=== PATIENT | female | born 1975 | race Caucasian/White ===

== ENCOUNTER 2017-10-01 18:59 | Emergency (ER) | payer OTHER, MEDICAID ==
[~2017-10-01] VITALS: Ht 167.6 cm; Wt 90.7 kg
[~2017-10-01 18:59] MED LIST: ACCUPRIL40 MG PO; ACETAMINOPHEN-1 EAC1 PO; AFRIN15 ML NS; AMOXICILLIN500 M1 PO; AZITHROMYCIN250 MG PO; CIPROFLOXACIN500 M1 PO; FLEXERIL PO; GLUCOPHAGE1000 MG; GLUCOPHAGE1000 MG PO; GLYBURIDE 2.52.5 MG PO; GLYBURIDE 5 MG T5 M1 GT; HYDROCODONE-AP1 EAC6 PO; IBUPROFEN 800800 M1 PO; IBUPROFEN 800800 MG PO; IRON325 PO; LANTUSSOLASTAR SC; LANTUSSOLASTAR SQ; LORATIDINE 10 M10 M1 PO; LORTABELXR PO; METFORMIN HCL500 MG PO; MOBIC7.5 MG PO; NORCO 5-325 TA1 EACH PO; NOVALOG INSULIN; NOVOLOG100 UNIT/1 SC; ONDANSETRON HCL4 M2 PO; OXYCODONE HCL5 M1 PO; PENICILLIN VK250 MG PO; TRAMADOL 50 MG50 MG PO; ULTRAM 50MG TAB50 MG PO; WELLBUTRIN XL150 MG PO; ZOFRAN4 MG PO; [UNRECOGNIZED DRUG - OTHER]
[2017-10-01] MEDS ORDERED: CLEOCIN HCL150 MG PO (19:24)
[2017-10-01 19:46] VITALS: BP 148/63
== END 2017-10-01 19:47 | disposition home or self-care (01) ==
LOC: M.ERS 18:59
DX: K04.7 Periapical abscess without sinus (principal); E11.9 Type 2 diabetes mellitus without complications; F17.210 Nicotine dependence, cigarettes, uncomplicated; Z88.1 Allergy status to other antibiotic agents

== ENCOUNTER 2017-11-09 09:17 | Emergency (ER) | payer OTHER, MEDICAID ==
[~2017-11-09] VITALS: Ht 167.6 cm; Wt 90.7 kg
[~2017-11-09 09:17] MED LIST changes: +CLEOCIN HCL150 MG PO
[2017-11-09] MEDS ORDERED: LIPITOR80 MG PO (09:26)
[2017-11-09] MEDS ORDERED: LISINOPRIL20 MG PO (09:27)
[2017-11-09] MEDS ORDERED: INVOKANA100 MG PO (09:27)
[2017-11-09 09:41] LABS: ABSOLUTE BASOPHILS 0.1 thou/uL (0.0-0.2); ABSOLUTE EOSINOPHILS 0.2 thou/uL (0.0-0.7); ABSOLUTE LYMPHOCYTES 2.5 thou/uL (0.8-5.3); ABSOLUTE NEUTROPHILS 9.5 thou/uL (1.6-8.1); BASOPHILS 0.7 %; EOSINOPHILS 1.4 %; HEMATOCRIT 44.4 % (37.0-47.0); HEMOGLOBIN 15.2 gm/dL (12.0-15.0); LYMPHOCYTES 18.6 %; MCH 29.6 pg (26.0-34.0); MCHC 34.1 g/dL (28.0-37.0); MCV 86.8 fL (80.0-100.0); MONOCYTES 7.7 %; MPV 9.8 fl. (7.2-11.1); NUCLEATED RBCS 0 /100WBC; PLATELET COUNT* 290 thou/uL (150-400); POLYS 71.6 %; RBC 5.12 mil/uL (4.20-5.00); RDW-CV 13.6 % (10.5-14.5); WBC 13.2 thou/uL (4.0-11.0)
[2017-11-09 10:13] LABS: ANION GAP 10 mmol/L (7-16); BUN 11 mg/dL (7-18); CHLORIDE 101 mmol/L (98-107); CO2 27 mmol/L (21-32); CREATININE 0.7 mg/dL (0.6-1.3); GLUCOSE 212 mg/dL (70-99); POTASSIUM 3.9 mmol/L (3.5-5.1); SODIUM 138 mmol/L (136-145)
[2017-11-09 10:19] LABS: APTT 26.6 Seconds (25.0-31.3); PROTIME 9.4 Seconds (9.20-11.50)
[2017-11-09 10:32] LABS: ALKALINE PHOSPHATASE 87 U/L (46-116); CK-MB MASS < 0.5 ng/mL (<0.5-3.6); LIPASE 213 U/L (73-393); MAGNESIUM 1.7 mg/dL (1.8-2.4); NT-PRO BRAIN NAT PEPTIDE 197 pg/mL (<300); SGOT 12 U/L (15-37); SGPT 17 U/L (30-65); TOTAL BILIRUBIN 0.6 mg/dL (<0.1-1.0); TOTAL PROTEIN 7.2 g/dL (6.4-8.2); TROPONIN-I LEVEL <0.06 ng/mL (<0.06)
[2017-11-09 10:53] VITALS: BP 105/48
--- NOTE | 2017-11-10 12:04 | EKG ---
[place] [address] ELECTROCARDIOGRAM REPORT Name: FABRIZIO POON Room: [facility]#: [id number] Admission: 11/09/17 Attend Phys: Discharge: 11/09/17 Date of : 77 Report #: [id number] THIS REPORT FOR: //name// [facility] ED Test Date: 2017-11-09 Test Time: 09:22:49 Pat Name: FABRIZIO POON Department: Room: Gender: F Head Machine Feeder: BRIJESH : 1975 Requested By: Rod Lyons Order Number: [id number] MD: Arcadio Clement Measurements Intervals [place] Rate: 84 P: 64 HI: 172 QRS: 48 QRSD: 83 T: 20 QT: 397 QTc: 470 Interpretive Statements Sinus rhythm Low voltage, precordial leads Compared to ECG 01/30/2017 20:42:24 Low QRS voltage now present Myocardial infarct finding no longer present Electronically Signed On 11-10-2017 12:03:50 CDT by Arcadio Clement [email or web address] <ELECTRONICALLY SIGNED> By: Beka Clement MD, [facility] 11/10/17 1203 0922 0922 Beka Clement MD, [facility] /EPI
== END 2017-11-09 10:53 | disposition home or self-care (01) ==
LOC: M.ERS 09:17
PROVIDERS: Family Medicine
DX: R07.89 Other chest pain (principal); E11.9 Type 2 diabetes mellitus without complications; F17.210 Nicotine dependence, cigarettes, uncomplicated; Z88.1 Allergy status to other antibiotic agents

== ENCOUNTER 2018-08-08 07:32 | Emergency (ER) | payer OTHER, MEDICAID ==
[~2018-08-08] VITALS: Ht 167.6 cm; Wt 86.2 kg
[~2018-08-08 07:32] MED LIST changes: +INVOKANA100 MG PO; +LIPITOR80 MG PO; +LISINOPRIL20 MG PO
[2018-08-08 08:19] LABS: ABSOLUTE BASOPHILS 0.1 thou/uL (0.0-0.2); ABSOLUTE EOSINOPHILS 0.1 thou/uL (0.0-0.7); ABSOLUTE LYMPHOCYTES 1.8 thou/uL (0.8-5.3); ABSOLUTE MONOCYTES 0.9 thou/uL (0.0-1.2); ABSOLUTE NEUTROPHILS 8.2 thou/uL (1.6-8.1); BASOPHILS 0.9 %; EOSINOPHILS 0.9 %; HEMATOCRIT 49.5 % (37.0-47.0); HEMOGLOBIN 16.7 gm/dL (12.0-15.0); LYMPHOCYTES 16.1 %; MCH 29.5 pg (26.0-34.0); MCHC 33.7 g/dL (28.0-37.0); MCV 87.5 fL (80.0-100.0); MONOCYTES 7.7 %; MPV 9.9 fl. (7.2-11.1); NUCLEATED RBCS 0 /100WBC; PLATELET COUNT* 284 thou/uL (150-400); POLYS 74.4 %; RBC 5.66 mil/uL (4.20-5.00); RDW-CV 13.7 % (10.5-14.5); WBC 11.1 thou/uL (4.0-11.0)
[2018-08-08 08:29] LABS: BE -2.9 mmol/L (-2 to +3); PCO2 35.7 mmHg (35.0-45.0); PO2 81.4 mmHg (75.0-100.0); pH 7.393 (7.340-7.450)
[2018-08-08 08:33] LABS: ANION GAP 13 mmol/L (7-16); BUN 16 mg/dL (7-18); CALCIUM 9.8 mg/dL (8.5-10.1); CHLORIDE 94 mmol/L (98-107); CO2 23 mmol/L (21-32); CREATININE 1.2 mg/dL (0.6-1.3); GLUCOSE 366 mg/dL (70-99); SODIUM 130 mmol/L (136-145)
[2018-08-08 08:40] LABS: ALBUMIN 3.7 g/dL (3.4-5.0); ALKALINE PHOSPHATASE 101 U/L (46-116); LIPASE 210 U/L (73-393); SGOT 11 U/L (15-37); SGPT 19 U/L (30-65); TOTAL BILIRUBIN 0.4 mg/dL (<0.1-1.0); TROPONIN-I LEVEL <0.06 ng/mL (<0.06)
[2018-08-08 09:20] LABS: URINE BILIRUBIN NEGATIVE (Negative); URINE BLOOD 3+ (Negative); URINE CLARITY CLEAR; URINE COLOR YELLOW; URINE GLUCOSE-RANDOM 2+ (Negative); URINE KETONES NEGATIVE (Negative); URINE LEUKOCYTES-REFLEX NEGATIVE (Negative); URINE NITRITE-REFLEX NEGATIVE (Negative); URINE PROTEIN TRACE (Negative); URINE UROBILINOGEN 0.2 E.U./dl (0.2-1.0)
[2018-08-08 09:54] LABS: BACTERIA-REFLEX 1-9 Few /HPF (None Seen); CRYSTALS None Seen /LPF (None Seen); HYALINE CASTS 4-10 Moderate /LPF (None Seen); MUCUS 4-6 Moderate strn/LPF (None Seen); SQUAMOUS 4-10 Moderate /LPF (0-3); URINE RBC 3-10 Few /HPF (0-2); URINE WBC-REFLEX 0-5 Rare /HPF (0-5)
[2018-08-08 11:06] VITALS: BP 153/75
--- NOTE | 2018-08-09 12:38 | EKG ---
[place] [address] ELECTROCARDIOGRAM REPORT Name: FABRIZIO POON Room: [facility] ([place] [place])#: [id number] Admission: 08/08/18 Attend Phys: Discharge: 08/08/18 Date of : 77 Report #: [id number] THIS REPORT FOR: //name// [facility] ED Test Date: 2018-08-08 Test Time: 08:11:38 Pat Name: FABRIZIO POON Department: Room: Gender: F Apartment Leasing Manager: Roscoe LOCKETT : 1975 Requested By: Christos Marlow Order Number: [id number] MD: Adarsh Dumont Measurements Intervals [place] Rate: 96 P: 62 TX: 156 QRS: 40 QRSD: 86 T: 36 QT: 376 QTc: 476 Interpretive Statements Sinus rhythm Compared to ECG 11/09/2017 09:22:49 No significant changes Electronically Signed On 08-09-2018 12:38:13 SENIOR PRODUCT INTEGRITY ENGINEER by Adarsh Dumont [email or web address] <ELECTRONICALLY SIGNED> By: Adarsh Dumont MD, [facility] 08/09/18 1238 0811 0 Adarsh Dumont MD, FACC /EPI
== END 2018-08-08 11:06 | disposition home or self-care (01) ==
LOC: M.ERS 07:32
PROVIDERS: Emergency Medicine Emergency Medical Services
DX: E11.65 Type 2 diabetes mellitus with hyperglycemia (principal); R10.13 Epigastric pain; F17.210 Nicotine dependence, cigarettes, uncomplicated; F32.9 Major depressive disorder, single episode, unspecified; I10 Essential (primary) hypertension; Z88.2 Allergy status to sulfonamides; Z98.890 Other specified postprocedural states; Z90.49 Acquired absence of other specified parts of digestive tract

== ENCOUNTER 2018-10-07 11:43 | Emergency (ER) | payer OTHER, MEDICAID ==
[~2018-10-07] VITALS: Ht 167.6 cm; Wt 81.7 kg
[2018-10-07 12:27] LABS: ABSOLUTE BASOPHILS 0.1 thou/uL (0.0-0.2); ABSOLUTE EOSINOPHILS 0.1 thou/uL (0.0-0.7); ABSOLUTE LYMPHOCYTES 2.1 thou/uL (0.8-5.3); ABSOLUTE MONOCYTES 0.9 thou/uL (0.0-1.2); ABSOLUTE NEUTROPHILS 9.4 thou/uL (1.6-8.1); BASOPHILS 0.8 %; HEMATOCRIT 50.1 % (37.0-47.0); HEMOGLOBIN 17.1 gm/dL (12.0-15.0); LYMPHOCYTES 16.3 %; MCH 29.9 pg (26.0-34.0); MCHC 34.1 g/dL (28.0-37.0); MCV 87.6 fL (80.0-100.0); MONOCYTES 6.8 %; MPV 9.5 fl. (7.2-11.1); NUCLEATED RBCS 0 /100WBC; PLATELET COUNT* 353 thou/uL (150-400); POLYS 75.1 %; RBC 5.72 mil/uL (4.20-5.00); RDW-CV 14.2 % (10.5-14.5); WBC 12.6 thou/uL (4.0-11.0)
[2018-10-07 12:38] LABS: ALBUMIN 3.6 g/dL (3.4-5.0); CALCIUM 9.7 mg/dL (8.5-10.1); CREATININE 0.9 mg/dL (0.6-1.3); POTASSIUM 3.8 mmol/L (3.5-5.1); TOTAL BILIRUBIN 0.4 mg/dL (<0.1-1.0); TOTAL PROTEIN 8.1 g/dL (6.4-8.2)
[2018-10-07] MEDS ORDERED: NORCO 5-325 TA1 EACH PO (14:04)
[2018-10-07 14:12] LABS: URINE BILIRUBIN NEGATIVE (Negative); URINE BLOOD NEGATIVE (Negative); URINE CLARITY CLEAR; URINE COLOR YELLOW; URINE GLUCOSE-RANDOM 3+ (Negative); URINE KETONES 1+ (Negative); URINE LEUKOCYTES-REFLEX NEGATIVE (Negative); URINE NITRITE-REFLEX NEGATIVE (Negative); URINE PROTEIN NEGATIVE (Negative); URINE SPECIFIC GRAVITY <= 1.005 (1.005-1.030); URINE UROBILINOGEN 0.2 E.U./dl (0.2-1.0)
[2018-10-07 14:42] VITALS: BP 144/89
== END 2018-10-07 14:43 | disposition home or self-care (01) ==
LOC: M.ERS 11:43
PROVIDERS: Physician Assistant
DX: K42.9 Umbilical hernia without obstruction or gangrene (principal); E11.65 Type 2 diabetes mellitus with hyperglycemia; F17.210 Nicotine dependence, cigarettes, uncomplicated; Z98.890 Other specified postprocedural states; Z88.2 Allergy status to sulfonamides

== ENCOUNTER 2019-03-26 18:47 | Emergency (ER) | payer OTHER, MEDICAID ==
[~2019-03-26] VITALS: Ht 167.6 cm; Wt 74.8 kg
[2019-03-26] MEDS ORDERED: LIPITOR80 MG PO (19:05)
[2019-03-26] MEDS ORDERED: JANUMET 50-1,01 EACH PO (19:05)
[2019-03-26] MEDS ORDERED: PRINIVIL20 M1 PO (19:06)
[2019-03-26] MEDS ORDERED: DIABETIC MED (19:07)
[2019-03-26 19:14] LABS: URINE BILIRUBIN NEGATIVE (Negative); URINE BLOOD 3+ (Negative); URINE CLARITY CLOUDY; URINE COLOR YELLOW; URINE GLUCOSE-RANDOM 1+ (Negative); URINE KETONES TRACE (Negative); URINE PROTEIN 2+ (Negative); URINE SPECIFIC GRAVITY >= 1.030 (1.005-1.030)
[2019-03-26 19:16] LABS: URINE LEUKOCYTES-REFLEX 2+ (Negative); URINE NITRITE-REFLEX POSITIVE (Negative)
[2019-03-26 19:22] LABS: HYALINE CASTS 0-3 Few /LPF (None Seen); MUCUS 0-3 Light strn/LPF (None Seen); SQUAMOUS 0-3 Few /LPF (0-3)
[2019-03-26 19:23] LABS: URINE WBC-REFLEX >25 Many /HPF (0-5)
[2019-03-26 19:24] LABS: BACTERIA-REFLEX >30 Many /HPF (None Seen); CRYSTALS None Seen /LPF (None Seen)
[2019-03-26] MEDS ORDERED: MACROBID 100 M100 M2 PO (19:34)
[2019-03-26 19:41] VITALS: BP 118/67
== END 2019-03-26 19:41 | disposition home or self-care (01) ==
LOC: M.ERS 18:47
PROVIDERS: Nurse Practitioner Family
DX: N39.0 Urinary tract infection, site not specified (principal); F17.210 Nicotine dependence, cigarettes, uncomplicated; E11.9 Type 2 diabetes mellitus without complications; Z88.2 Allergy status to sulfonamides; Z98.890 Other specified postprocedural states; Z90.49 Acquired absence of other specified parts of digestive tract

== ENCOUNTER 2019-08-30 08:20 | Inpatient (IN) | payer OTHER, MEDICAID ==
[~2019-08-30] VITALS: Ht 167.6 cm; Wt 83.5 kg
[~2019-08-30 08:20] MED LIST changes: +DIABETIC MED; +JANUMET 50-1,01 EACH PO; +MACROBID 100 M100 M2 PO; +PRINIVIL20 M1 PO
[2019-08-30 08:23] VITALS: BP 157/88
[2019-08-30 09:28] LABS: ABSOLUTE BASOPHILS 0.1 thou/uL (0.0-0.2); ABSOLUTE EOSINOPHILS 0.1 thou/uL (0.0-0.7); ABSOLUTE LYMPHOCYTES 1.6 thou/uL (0.8-5.3); ABSOLUTE MONOCYTES 0.9 thou/uL (0.0-1.2); BASOPHILS 0.6 %; EOSINOPHILS 0.9 %; HEMATOCRIT 38.1 % (37.0-47.0); LYMPHOCYTES 11.4 %; MCH 30.2 pg (26.0-34.0); MCV 88.7 fL (80.0-100.0); MONOCYTES 6.4 %; MPV 9.3 fl. (7.2-11.1); NUCLEATED RBCS 0 /100WBC; PLATELET COUNT* 236 thou/uL (150-400); POLYS 80.7 %; RDW-CV 13.7 % (10.5-14.5); WBC 13.6 thou/uL (4.0-11.0)
[2019-08-30 09:39] LABS: CALCIUM 8.4 mg/dL (8.5-10.1); CREATININE 0.8 mg/dL (0.6-1.3); POTASSIUM 4.2 mmol/L (3.5-5.1)
[2019-08-30 09:46] LABS: APTT 24.5 Seconds (25.0-31.3); INR 0.9; PROTIME 9.6 Seconds (9.20-11.50)
[2019-08-30 09:52] LABS: ALBUMIN 2.8 g/dL (3.4-5.0); CK-MB MASS 2.7 ng/mL (<0.5-3.6); MAGNESIUM 1.5 mg/dL (1.8-2.4); TOTAL BILIRUBIN 0.2 mg/dL (<0.1-1.0); TOTAL PROTEIN 6.3 g/dL (6.4-8.2)
--- NOTE | 2019-08-30 12:08 | CON ---
[facility] [address] [place] [address] CONSULTATION Name: FABRIZIO POON Room: [address] IN .R.#: [id number] Admission: 08/30/19 Attend Phys: Jameel Dubose MD Discharge: Date of : 77 Report #: [id number] THIS REPORT FOR: //name// cc: Danielito Aranda MD, Naiomi MD ~ THIS REPORT FOR: //name// CC: Rod Aranda DATE OF SERVICE: 08/30/2019 HISTORY OF PRESENT ILLNESS: The patient is a 44-year-old single white female who I was asked to see in the Emergency Room today after she complained of chest pain. The patient has no previous history of heart disease. She stays very active. She has had no previous cardiac evaluation. She was doing well until yesterday morning. She was in bed when she felt a pressure on the right side of her chest, went into her right arm. She felt nausea and vomited. It lasted about 5 minutes and resolved. She had no further pain until this morning. She was again lying in bed. After about 15 minutes, she felt a pressure in the right side of her chest, went into her right arm. She felt lightheaded, nauseated, and vomited. There was no blood in her vomit. She drove herself to the Emergency Room and was admitted for further evaluation and treatment. She denied the pain being related to food or exertion. She has had no trauma to her chest. There is no rash. She has had no blood in her stool. She denies exertional dyspnea, palpitations, or syncope. She has had occasional edema. PAST MEDICAL HISTORY: She has had cholecystectomy and . Last menstrual period was about a month ago. She has a history of diabetes. She is on oral medications. She has high blood pressure and was taken off lisinopril because the blood pressure is normalized. She has a history of hyperlipidemia, although she is given a prescription for Crestor, but is not taking it at the current time. ALLERGIES: SHE HAS AN ALLERGY TO SULFA DRUGS. FAMILY HISTORY: Negative for heart disease. SOCIAL HISTORY: She is single, has never been , and does have 4 children. She works at [employer]. She lives in [place]. She smokes half pack of cigarettes a day. No significant alcohol. She occasionally smokes marijuana. REVIEW OF SYSTEMS: She has Medicaid for her diabetes. There is no history of stroke, asthma, liver disease, kidney disease, cancer, psychiatric illness, [place] [address] CONSULTATION Name: FABRIZIO POON Room: [address] IN [facility]#: [id number] Admission: 08/30/19 Attend Phys: Jameel Dubose MD Discharge: Date of : 77 Report #: [id number] PHYSICAL EXAMINATION: GENERAL: Revealed a middle-aged female who appeared in no distress, lying in bed in the Emergency Room. VITAL SIGNS: She had a blood pressure of 150/90. Pulse is 90. She is afebrile. HEENT: She was anicteric. Conjunctivae pink. Mucous membranes moist. NECK: Neck veins nondistended. No carotid bruits. Neck is supple. CHEST: Clear to auscultation. CARDIOVASCULAR: Regular rate and rhythm without murmur. ABDOMEN: Soft. EXTREMITIES: No edema. Posterior tibial pulses 2+ bilaterally. SKIN: Warm and dry. NEUROLOGIC: Nonfocal. RADIOLOGICAL DATA: ECG shows a sinus rhythm. There were septal Q-waves noted. No significant ST or T-wave change noted. Workup in the Emergency Room today, she had a portable chest x-ray that showed normal heart size and clear lung garner. LABORATORY DATA: Sodium 140, creatinine 0.8, and glucose 260. Her troponin on admission was 0.49. BNP 1605. Previous LDL was 121 in 2010. Previous TSH was 2.5. Her white blood cell count is 13.6 and hemoglobin 13. IMPRESSION AND RECOMMENDATIONS: 1. Acute coronary syndrome. Borderline troponin. No ECG changes, although the patient has evidence of previous anteroseptal infarction. Recommend cardiac catheterization. 2. Hypertension. I would recommend starting a beta rema. 3. Diabetes. 4. Hyperlipidemia. Recommend a statin drug. 5. Tobacco abuse. Recommend nicotine patch. <ELECTRONICALLY SIGNED> By: Adarsh Dumont MD, FACC 08/30/19 1208 1040 1104Derik Dumont MD, FAC /nt
--- NOTE | 2019-08-30 12:49 | NUR ---
REPORT GIVEN TO CONOR RICHTER WHO IS TO ASSUME PT CARE INPATIENT NURSE.
[2019-08-30 12:50] VITALS: BP 150/78
[2019-08-30] MEDS ORDERED: KEFLEX500 M2 PO (13:13)
[2019-08-30] MEDS ORDERED: GLIPIZIDE 10 MG10 MG PO (13:14)
[2019-08-30 13:15] VITALS: BP 139/83
--- NOTE | 2019-08-30 14:32 | NUR ---
PT ADMITTED TO TELEMETRY ROOM 227 AT APPROXIMATELY 1300. VSS. SR ON MONITOR. PT DENIES PAIN, SOA, N/V/D. REFER TO COMPUTER CHARTING FOR FURTHER DETAILS. HOURLY ROUNDING IN PLACE FOR PT SAFETY. CLWR.
[2019-08-30 15:54] VITALS: BP 125/71
[2019-08-30 20:15] VITALS: BP 133/72
[2019-08-31] VITALS (8 sets, daily range): BP systolic 121–145; BP diastolic 57–84
[2019-08-31 03:54] LABS: ABSOLUTE BASOPHILS 0.1 thou/uL (0.0-0.2); ABSOLUTE EOSINOPHILS 0.3 thou/uL (0.0-0.7); ABSOLUTE LYMPHOCYTES 3.3 thou/uL (0.8-5.3); ABSOLUTE MONOCYTES 0.8 thou/uL (0.0-1.2); BASOPHILS 0.9 %; EOSINOPHILS 2.6 %; HEMATOCRIT 37.8 % (37.0-47.0); HEMOGLOBIN 12.8 gm/dL (12.0-15.0); LYMPHOCYTES 31.4 %; MCH 30.4 pg (26.0-34.0); MCV 89.5 fL (80.0-100.0); MONOCYTES 7.5 %; MPV 10.2 fl. (7.2-11.1); NUCLEATED RBCS 0 /100WBC; PLATELET COUNT* 235 thou/uL (150-400); POLYS 57.6 %; RBC 4.22 mil/uL (4.20-5.00); RDW-CV 13.8 % (10.5-14.5); WBC 10.4 thou/uL (4.0-11.0)
[2019-08-31 04:18] LABS: ANION GAP 11 mmol/L (7-16); BUN 11 mg/dL (7-18); CALCIUM 8.7 mg/dL (8.5-10.1); CHLORIDE 105 mmol/L (98-107); CHOLESTEROL 141 mg/dL (<200); CO2 24 mmol/L (21-32); CREATININE 0.7 mg/dL (0.6-1.3); GLUCOSE 140 mg/dL (70-99); HDL CHOLESTEROL 35 mg/dL (>40); LDL CHOLESTEROL 75 mg/dL (<100); POTASSIUM 3.4 mmol/L (3.5-5.1); SODIUM 140 mmol/L (136-145); TRIGLYCERIDE 158 mg/dL (<150); TROPONIN-I LEVEL 0.49 ng/mL (<0.06); VLDL 32 mg/dL (<40)
[2019-08-31 04:28] LABS: SERUM ASSESSMENT CLEAR
--- NOTE | 2019-08-31 08:45 | EKG ---
[place] [address] ELECTROCARDIOGRAM REPORT Name: FABRIZIO POON Room: [place] [address] ADM IN .R.#: [id number] Admission: 08/30/19 Attend Phys: Jameel Dubose, Discharge: Date of : 77 Date of Service: 08/30/19 0823 Report #: [id number] THIS REPORT FOR: //name// [facility] ED Test Date: 2019-08-30 Test Time: 08:23:47 Pat Name: FABRIZIO POON Department: Room: [facility] Gender: F Federal Judge: OFELIA : 1975 Requested By: Rod Lyons Order Number: [id number] MD: Adarsh Dumont Measurements Intervals [place] Rate: 95 P: 75 TN: 159 QRS: 55 QRSD: 85 T: 22 QT: 367 QTc: 462 Interpretive Statements Sinus rhythm Anteroseptal infarct, old Compared to ECG 08/08/2018 08:11:38 no change Electronically Signed On 08-31-2019 8:44:13 INTERNATIONAL MARKETING INTERN by Adarsh Dumont [email or web address] <ELECTRONICALLY SIGNED> By: Adarsh Dumont MD, FAC 08/31/19 0844 2 2 Adarsh Dumont MD, [facility] /EPI
--- NOTE | 2019-08-31 11:27 | NUR ---
PT OFF UNIT, WILL SEE LATER
--- NOTE | 2019-08-31 13:42 | NUR ---
MET WITH PT TO DISCUSS HOME SITUATION/DC PLANNING. PT LIVES ALONE, IS STAYING WITH A FRIEND AT THIS TIME. SHE IS INDEPENDENT, ACTIVE AND WORKS. USES NO EQUIPMENT. FOLLOWS WITH A AT [facility] IN [facility]. DENIES NEEDS.
--- NOTE | 2019-08-31 15:35 | EKG ---
[place] [address] ELECTROCARDIOGRAM REPORT Name: FABRIZIO POON Room: [place] [address] ADM IN .R.#: [id number] Admission: 08/30/19 Attend Phys: Jameel Dubose, Discharge: Date of : 77 Date of Service: 08/31/19 1247 Report #: [id number] THIS REPORT FOR: //name// [facility] Test Date: 2019-08-31 Test Time: 12:47:13 Pat Name: FABRIZIO CLEVE Department: Room: [place] [address] Gender: F Teenage Program Director: SHERLYN : 1975 Requested By: Adarsh Dumont Order Number: [id number] John MD: Adarsh Dumont Measurements Intervals [place] Rate: 71 P: 8 MD: 132 QRS: 46 QRSD: 90 T: 118 QT: 495 QTc: 538 Interpretive Statements Sinus rhythm Anteroseptal infarct, age indeterminate Prolonged QT interval Compared to ECG 08/30/2019 08:23:47 Prolonged QT interval now present Myocardial infarct finding still present Electronically Signed On 08-31-2019 15:34:20 VISUAL PRESENTATION MANAGER by Adarsh Dumont [email or web address] <ELECTRONICALLY SIGNED> By: Adarsh Dumont MD, [facility] 08/31/19 1534 1247 1247 Adarsh Dumont MD, [facility] /EPI
--- NOTE | 2019-08-31 15:40 | EKG ---
[place] [address] ELECTROCARDIOGRAM REPORT Name: FABRIZIO POON Room: [place] [address] ADM IN .R.#: [id number] Admission: 08/30/19 Attend Phys: Jameel Dubose, Discharge: Date of : 77 Date of Service: 08/31/19 1500 Report #: [id number] THIS REPORT FOR: //name// [facility] Test Date: 2019-08-31 Test Time: 15:00:35 Pat Name: FABRIZIO POON Department: Room: [place] [address] Gender: F Turnaround Planner: : 1975 Requested By: Willie Escamilla Order Number: [id number] John MD: Adarsh Dumont Measurements Intervals [place] Rate: 68 P: 69 MS: 165 QRS: 60 QRSD: 89 T: 144 QT: 478 QTc: 509 Interpretive Statements Sinus rhythm Anteroseptal infarct, age indeterminate Lateral leads are also involved Electronically Signed On 08-31-2019 15:39:37 DIRECTOR MEDIA by Adarsh Dumont [email or web address] <ELECTRONICALLY SIGNED> By: Adarsh Dumont MD, FAC 08/31/19 1539 1500 1500 Adarsh Dumont MD, [facility] /EPI
--- NOTE | 2019-08-31 18:25 | CARD ---
[address] [address] CARDIAC CATH REPORT Name: FABRIZIO POON Room: [address] IN [facility]#: [id number] Admission: 08/30/19 Attend Phys: Jameel Dubose MD Discharge: Date of : 77 Report #: [id number] THIS REPORT FOR: //name// cc: Danielito Aranda MD, Naiomi MD ~ THIS REPORT FOR: //name// APPROVED REPORT Study performed: 08/31/2019 09:20:12 Patient Details Patient Status: In-Patient Room #: The patient is a 44 year-old female Event Personnel Adarsh Dumont Labourers, Elen Christie RN, Edwin Santos LINOLEUM LAYER Monitor, Emma Todd RTR Scrub, Adarsh Dumont Naval Science Teacher Procedures Performed cath pci Indication Abnormal ECG, Non-STEMI , Chest pain Risk Factors Hypercholesterolemia, Hypertension, Diabetes Tobacco History () Admission/Lab Medications/Medications given during procedure Glycoprotein IllbIlla Inhibitors, Heparin Low Molecular Weight Procedure Narrative The patient was brought electively to the Cardiac Catheterization Laboratory and was prepped and draped in a sterile manner. The right wrist was infiltrated with 1% Lidocaine subcutaneous anesthesia. A Slender Glidesheath sheath was inserted into the right radial artery. Coronary angiography was performed using coronary diagnostic catheters. The right coronary system was accessed and visualized with a Diagnostic- JR4 catheter. The left coronary system was accessed and visualized with a Diagnostic - JL 3.5 6fr catheter. The left ventricle was accessed and visualized with a Diagnostic - ANG PIG [address] [address] CARDIAC CATH REPORT Name: FABRIZIO POON Room: [address]#: [id number] Admission: 08/30/19 Attend Phys: Jameel Dubose MD Discharge: Date of : 77 Report #: [id number] catheter. Left ventricular/Aortic Valve gradient assessed via catheter pullback. Left ventriculogram was performed in AGUILAR projection. Closure device was deployed with a 6 Fr Vasc-Band Reg 24cm. The patient tolerated the procedure well and there were no complications associated with the procedure. There was no hematoma. Intraoperative Conscious Sedation Sedation start time: 1018 Case end Time: 1114 Fentanyl 50 mcg Versed 4 mg Fluoro Time: 9.9 minutes Dose: DAP 62966 cGycm2 1254 mGy Contrast Type and Amount: Omnipaque 170 ml Coronary Angiography The patient's coronary anatomy is left dominant. Diagnostic Cath Left Main 0% stenosis LAD 90% mid and 80% distal stenosis Diagonal 3 80% ostial stenosis Circumflex 50% mid stenosis OM3 60% proximal stenosis Right Coronary 30% proximal and 40% mid stenosis RPLV 70% proximal stenosis Ramus 0% stenosis Left Ventriculography The left ventricular ejection fraction is estimated to be 40-45%. Left ventricular wall motion abnormalities are present. There is no mitral insufficiency. apical akinesis noted Hemodynamics The aortic pressure is 130/56 mmHg with a mean of 83 mmHg. The left ventricular pressure is 133/10 mmHg with a mean of mmHg. The left ventricular end diastolic pressure is 20 mmHg. There was no gradient across the aortic valve upon pullback. Pullback from the left ventricle to the aorta revealed no gradient across the aortic valve. PCI Technique Lesion Anticoagulation was achieved with sq lovenox. bolus of iv aggrastat given Percutaneous coronary intervention was performed on the mid left anterior descending artery segment. The [place] [address] CARDIAC CATH REPORT Name: FABRIZIO POON Room: [address] IN [facility]#: [id number] Admission: 08/30/19 Attend Phys: Jameel Dubose MD Discharge: Date of : 77 Report #: [id number] intervention was 90% with RUTHANN 3 flow. A 6FR XB LAD 3.0 100CM Guide Catheter was used to engage the lm ostium. A IG: BMW 190cm Interventional Guidewire was used to cross the lesion. BALLOON DILATION A Balloon catheter Trek RX 2.5 X 12 was inserted and inflated up to 6.00atm for 10seconds. Repeat angiography revealed the following post-dilatation results: 50% stenosis. Additional Inflation: 12.00atm for 17seconds. STENT DEPLOYMENT A drug-eluting stent Danube RX Stent 2.49K82wo was inserted and inflated up to 9.00atm for 16seconds. Repeat angiography revealed the following post-stent deployment results: 0% stenosis. Additional Inflation: 10.00atm for 13seconds. Additional Inflation: 11.00atm for 11seconds. 14 OWEN FOR 16 SEC Final angiography reveals 0 % stenosis with RUTHANN 3 flow. Conclusion 1. cad manifested by a 90% stenosis of the mid lad, and 80% stenosis of the distal lad 2. 80% stenosis of the ostium of the 3rd diagonal branch of the lad 3. 40% stenosis of the mid rca 4. 60% stenosis of the 3rd marginal branch of the circumflex 5. LVEF 40-45% 6. successful placement of a drug eluting stent in the mid lad Recommendations Smoking Cessation Medications Administered Clopidogrel <ELECTRONICALLY SIGNED> By: Adarsh Dumont MD, [facility] 08/31/191822 22 1823Derik uDmont MD, FAC /INF
--- NOTE | 2019-08-31 20:09 | NUR ---
I ASSUMED CARE OF THE PATIENT AT 1030. BED IS IN THE LOW LOCKED POSITION AND CALL LIGHT IS IN REACH. HOURLY ROUNDING IS COMPLETED AND PATIENT NEEDS ARE MET. PAIN IS MANAGED WITH PRN MEDS. PRIOR NURSE COMPLETED ASSESSMENTS AND MORNING MEDS. PATIENT WENT FOR A HEART CATH AND A STENT WAS PLACED. RADIAL VASCULAR BAND WAS REMOVED AND SIGHT WAS C/D/I AND A DRESSING WAS PLACED. FLUIDS ARE INFUSING AND MAG WAS REPLACED. SHE RETURNED AT 1150. PATIENT IS PLEASANT. SHE SHOWERED WITH ONLY SETUP ASSISTANCE. WILL CONTINUE TO MANAGE.
[2019-09-01] VITALS: BP 121/67
[2019-09-01 02:07] LABS: GLYCOHEMOGLOBIN (HGB A1C) 8.1 % (4.8-5.6)
[2019-09-01 04:00] VITALS: BP 124/60
[2019-09-01 05:15] LABS: HEMATOCRIT 37.5 % (37.0-47.0); HEMOGLOBIN 12.5 gm/dL (12.0-15.0); MCH 29.7 pg (26.0-34.0); MCHC 33.3 g/dL (28.0-37.0); MCV 89.1 fL (80.0-100.0); MPV 9.6 fl. (7.2-11.1); RBC 4.21 mil/uL (4.20-5.00); RDW-CV 13.8 % (10.5-14.5); WBC 11.7 thou/uL (4.0-11.0)
[2019-09-01 05:35] LABS: CALCIUM 8.5 mg/dL (8.5-10.1); CREATININE 0.7 mg/dL (0.6-1.3); POTASSIUM 3.9 mmol/L (3.5-5.1); TROPONIN-I LEVEL 0.31 ng/mL (<0.06)
[2019-09-01 08:39] VITALS: BP 141/76
--- NOTE | 2019-09-01 09:40 | NUR ---
ASSUMED CARE OF PT THIS AM AROUND 07- ELECTRICIAN STATION ASSISTANT IN PLACE ORDERED, TRACING SR- UPON ASSESSMENT PT NOTED TO BE RESTING IN BED SIDE RECLINER- PT A&O X4- UP AD-MARLENE WITH STEADY GAIT- CONT OF B/B- LCTA. RESP EVEN AND UN-LABORED- VSS, O2 SAT NOTED TO BE 100% ON RA- ABD SOFT/ROUND/NON-TENDER, BS X4 QUADS- LAST BM REPORTED 08/31/19- IV NOTED TO RIGHT FA INTACT AND SL- RIGHT WRIST INCISSION SIGHT C/D/I WITH NO S/S INFECTION OR HEMATOMA- IV NOTED TO RIGHT FA INTACT AND SL- CARDIO NOTED TO SIGN OFF AND OKAY WITH D/C THIS SHIFT- PT DENIES ANY C/O PAIN/DISCOMFORT AT THIS TIME- CALL LIGHT AND PERSONAL BELONGINGS WITH IN REACH- PT MAKES NEEDS KNOWN- ALL NEEDS MET AT THIS TIME-WCTM
[2019-09-01] MEDS ORDERED: LIPITOR 40 MG T40 M1 PO (10:40)
[2019-09-01] MEDS ORDERED: LOPRESSOR50 MG PO (10:41)
[2019-09-01] MEDS ORDERED: PLAVIX 75 MG TA75 MG PO (10:41)
[2019-09-01] MEDS ORDERED: NITROGLYCERIN0.4 MG SUBLING (10:42)
[2019-09-01] MEDS ORDERED: ASA81BEC PO (10:43)
[2019-09-01] MEDS ORDERED: NICOTINE TRANSD21 M1 TRANSDERM (10:44)
[2019-09-01] MEDS ORDERED: APAP650 PO (10:46)
--- NOTE | 2019-09-01 16:47 | EKG ---
[place] [address] ELECTROCARDIOGRAM REPORT Name: FABRIZIO POON Room: [place] [address] DIS IN M.R.#: [id number] Admission: 08/30/19 Attend Phys: Jameel Dubose, Discharge: 09/01/19 Date of : 77 Date of Service: 09/01/19 0905 Report #: [id number] THIS REPORT FOR: //name// [facility] Test Date: 2019-09-01 Test Time: 09:05:25 Pat Name: FABRIZIO CLEVE Department: Room: [place] [address] Gender: F Childcare Aide: : 1975 Requested By: Adarsh Dumont Order Number: [id number] MD: Adarsh Dumont Measurements Intervals [place] Rate: 68 P: 18 AK: 130 QRS: 40 QRSD: 109 T: 80 QT: 442 QTc: 471 Interpretive Statements Sinus rhythm Low voltage, precordial leads Nonspecific T abnrm, anterolateral leads Compared to ECG 08/31/2019 15:00:35 Low QRS voltage now present Electronically Signed On 09-01-2019 16:46:22 CHEMICAL RESEARCH WORKER by Adarsh Dumont [email or web address] <ELECTRONICALLY SIGNED> By: Adarsh Dumont MD, FACC 09/01/19 1646 0905 Adarsh Dumont MD, FAC /EPI
== END 2019-09-01 14:23 | disposition home or self-care (01) | DRG 247 ==
LOC: M.ERS 08:20 → M.2W 10:50 → M.TBA-ER 10:50 → M.2W 13:00
PROVIDERS: Family Medicine; Internal Medicine Cardiovascular Disease; ADMIT Internal Medicine
PROC: 027034Z Dilation of Coronary Artery, One Artery with Drug-eluting Intraluminal Device, Percutaneous Approach (ICD-10-PCS; principal; 2019-08-31)
PROC: B2151ZZ Fluoroscopy of Left Heart using Low Osmolar Contrast (ICD-10-PCS; principal; 2019-08-31)
PROC: B2111ZZ Fluoroscopy of Multiple Coronary Arteries using Low Osmolar Contrast (ICD-10-PCS; principal; 2019-08-31)
PROC: 4A023N7 Measurement of Cardiac Sampling and Pressure, Left Heart, Percutaneous Approach (ICD-10-PCS; principal; 2019-08-31)
DX: I21.4 Non-ST elevation (NSTEMI) myocardial infarction (principal); I42.9 Cardiomyopathy, unspecified; E11.9 Type 2 diabetes mellitus without complications; F17.210 Nicotine dependence, cigarettes, uncomplicated; I25.110 Atherosclerotic heart disease of native coronary artery with unstable angina pectoris; I10 Essential (primary) hypertension; E78.5 Hyperlipidemia, unspecified; R94.31 Abnormal electrocardiogram [ECG] [EKG]; E87.6 Hypokalemia; E78.00 Pure hypercholesterolemia, unspecified; Z98.891 History of uterine scar from previous surgery; Z79.899 Other long term (current) drug therapy; Z79.84 Long term (current) use of oral hypoglycemic drugs; Z88.2 Allergy status to sulfonamides; Z82.49 Family history of ischemic heart disease and other diseases of the circulatory system

== ENCOUNTER 2019-12-16 17:03 | Emergency (ER) | payer OTHER, MEDICAID ==
[~2019-12-16] VITALS: Ht 167.6 cm; Wt 81.7 kg
[~2019-12-16 17:03] MED LIST changes: +APAP650 PO; +ASA81BEC PO; +GLIPIZIDE 10 MG10 MG PO; +KEFLEX500 M2 PO; +LIPITOR 40 MG T40 M1 PO; +LOPRESSOR50 MG PO; +NICOTINE TRANSD21 M1 TRANSDERM; +NITROGLYCERIN0.4 MG SUBLING; +PLAVIX 75 MG TA75 MG PO
[2019-12-16] MEDS ORDERED: NEURONTIN 300M300 M2 PO (17:25)
[2019-12-16 17:44] LABS: ABSOLUTE BASOPHILS 0.1 thou/uL (0.0-0.2); ABSOLUTE EOSINOPHILS 0.2 thou/uL (0.0-0.7); ABSOLUTE LYMPHOCYTES 3.1 thou/uL (0.8-5.3); ABSOLUTE NEUTROPHILS 6.9 thou/uL (1.6-8.1); BASOPHILS 0.9 %; HEMATOCRIT 41.5 % (37.0-47.0); LYMPHOCYTES 27.6 %; MCH 29.7 pg (26.0-34.0); MCHC 33.8 g/dL (28.0-37.0); MCV 88.1 fL (80.0-100.0); MONOCYTES 8.7 %; MPV 8.7 fl. (7.2-11.1); NUCLEATED RBCS 0 /100WBC; PLATELET COUNT* 283 thou/uL (150-400); POLYS 60.8 %; RBC 4.71 mil/uL (4.20-5.00); WBC 11.4 thou/uL (4.0-11.0)
[2019-12-16 17:53] LABS: CALCIUM 8.9 mg/dL (8.5-10.1); POTASSIUM 3.9 mmol/L (3.5-5.1)
[2019-12-16 18:04] LABS: ALBUMIN 3.4 g/dL (3.4-5.0); MAGNESIUM 1.6 mg/dL (1.8-2.4); TOTAL BILIRUBIN 0.5 mg/dL (<0.1-1.0); TOTAL PROTEIN 7.3 g/dL (6.4-8.2)
[2019-12-16] MEDS ORDERED: ZANAFLEX4 MG PO ×2 (20:03)
[2019-12-16] MEDS ORDERED: NORCO 5-325 TA1 EAC1 PO ×2 (20:03)
[2019-12-16 20:58] VITALS: BP 134/63
--- NOTE | 2019-12-17 15:58 | EKG ---
[place] [address] ELECTROCARDIOGRAM REPORT Name: FABRIZIO POON Room: [facility]#: [id number] Admission: 12/16/19 Attend Phys: Discharge: 12/16/19 Date of : 77 Date of Service: 12/16/19 1728 Report #: [id number] THIS REPORT FOR: //name// [facility] ED Test Date: 2019-12-16 Test Time: 17:28:34 Pat Name: FABRIZIO POON Department: Room: Gender: Shank Piece Tacker: : 1975 Requested By: Mary Mckee Order Number: [id number] MD: Bryant Flores Measurements Intervals [place] Rate: 90 P: 64 [place]: 183 QRS: 61 QRSD: 81 T: 41 QT: 397 QTc: 486 Interpretive Statements Sinus rhythm Borderline prolonged QT interval Compared to ECG 09/01/2019 09:05:25 No significant changes Electronically Signed On 12-17-2019 15:57:10 CDT by Bryant Flores [email or web address] <ELECTRONICALLY SIGNED> By: Bryant Flores MD, [facility] 12/17/19 1557 1728 1728 Bryant Flores MD, [facility] /EPI
== END 2019-12-16 20:59 | disposition home or self-care (01) ==
LOC: M.ERS 17:03
PROVIDERS: Nurse Practitioner Family
DX: S29.012A Strain of muscle and tendon of back wall of thorax, initial encounter (principal); I70.8 Atherosclerosis of other arteries; R07.89 Other chest pain; E11.9 Type 2 diabetes mellitus without complications; I10 Essential (primary) hypertension; E78.5 Hyperlipidemia, unspecified; I25.2 Old myocardial infarction; F17.210 Nicotine dependence, cigarettes, uncomplicated; Z88.2 Allergy status to sulfonamides; Z79.82 Long term (current) use of aspirin; Z79.899 Other long term (current) drug therapy; X58.XXXA Exposure to other specified factors, initial encounter; Y93.89 Activity, other specified; Y92.89 Other specified places as the place of occurrence of the external cause; Y99.8 Other external cause status

== ENCOUNTER 2020-02-15 11:32 | Emergency (ER) | payer OTHER, MEDICAID ==
[~2020-02-15] VITALS: Ht 167.6 cm; Wt 86.2 kg
[~2020-02-15 11:32] MED LIST changes: +NEURONTIN 300M300 M2 PO; +NORCO 5-325 TA1 EAC1 PO; +ZANAFLEX4 MG PO
[2020-02-15] MEDS ORDERED: ZANAFLEX4 MG PO (12:01)
[2020-02-15 12:08] LABS: URINE BILIRUBIN NEGATIVE (Negative); URINE BLOOD NEGATIVE (Negative); URINE CLARITY CLEAR; URINE COLOR YELLOW; URINE GLUCOSE-RANDOM NEGATIVE (Negative); URINE KETONES NEGATIVE (Negative); URINE LEUKOCYTES-REFLEX NEGATIVE (Negative); URINE NITRITE-REFLEX NEGATIVE (Negative); URINE PROTEIN NEGATIVE (Negative); URINE UROBILINOGEN 0.2 E.U./dl (0.2-1.0)
[2020-02-15 12:38] VITALS: BP 133/76
== END 2020-02-15 12:38 | disposition home or self-care (01) ==
LOC: M.ERS 11:32
PROVIDERS: Nurse Practitioner Family
DX: M54.32 Sciatica, left side (principal); E11.9 Type 2 diabetes mellitus without complications; I10 Essential (primary) hypertension; E78.5 Hyperlipidemia, unspecified; F17.210 Nicotine dependence, cigarettes, uncomplicated; Z98.890 Other specified postprocedural states; Z95.5 Presence of coronary angioplasty implant and graft; Z88.2 Allergy status to sulfonamides

== ENCOUNTER 2020-06-17 09:38 | Emergency (ER) | payer OTHER, MEDICAID ==
[~2020-06-17] VITALS: Ht 167.6 cm; Wt 86.2 kg
[2020-06-17] MEDS ORDERED: ASA81BEC PO (09:54)
[2020-06-17] MEDS ORDERED: TOPROL XL25 MG PO (09:55)
[2020-06-17] MEDS ORDERED: PLAVIX 75 MG TA75 MG PO (09:55)
[2020-06-17] MEDS ORDERED: LIPITOR40 MG PO (09:56)
[2020-06-17] MEDS ORDERED: NITROSTAT0.4 M1 SUBLING (09:57)
[2020-06-17 10:15] LABS: ABSOLUTE BASOPHILS 0.1 thou/uL (0.0-0.2); ABSOLUTE EOSINOPHILS 0.3 thou/uL (0.0-0.7); ABSOLUTE LYMPHOCYTES 2.8 thou/uL (0.8-5.3); ABSOLUTE MONOCYTES 0.9 thou/uL (0.0-1.2); BASOPHILS 0.9 %; EOSINOPHILS 2.4 %; HEMATOCRIT 41.5 % (37.0-47.0); HEMOGLOBIN 13.6 gm/dL (12.0-15.0); LYMPHOCYTES 23.5 %; MCH 28.8 pg (26.0-34.0); MCHC 32.8 g/dL (28.0-37.0); MCV 87.6 fL (80.0-100.0); MONOCYTES 7.4 %; MPV 8.7 fl. (7.2-11.1); NUCLEATED RBCS 0 /100WBC; PLATELET COUNT* 331 thou/uL (150-400); POLYS 65.8 %; RBC 4.74 mil/uL (4.20-5.00); RDW-CV 14.5 % (10.5-14.5); WBC 12.1 thou/uL (4.0-11.0)
[2020-06-17 10:16] LABS: CALCIUM 8.8 mg/dL (8.5-10.1); CREATININE 0.9 mg/dL (0.6-1.3); POTASSIUM 3.8 mmol/L (3.5-5.1)
[2020-06-17 10:28] LABS: ALBUMIN 3.4 g/dL (3.4-5.0); CK-MB MASS 1.2 ng/mL (<0.5-3.6); MAGNESIUM 1.6 mg/dL (1.8-2.4); TOTAL BILIRUBIN 0.4 mg/dL (<0.1-1.0); TOTAL PROTEIN 7.9 g/dL (6.4-8.2)
[2020-06-17 10:45] LABS: APTT 24.7 Seconds (25.0-31.3); INR 0.9
[2020-06-17 12:14] VITALS: BP 147/67
--- NOTE | 2020-06-17 14:52 | EKG ---
[place] [address] ELECTROCARDIOGRAM REPORT Name: FABRIZIO POON Room: [facility]#: [id number] Admission: 06/17/20 Attend Phys: Discharge: 06/17/20 Date of : [birth year] Date of Service: 06/17/20 0944 Report #: [id number] THIS REPORT FOR: //name// [facility] ED Test Date: 2020-06-17 Test Time: 09:44:50 Pat Name: FABRIZIO POON Department: Room: Gender: F Property Handler: SAMANTHA : 1975 Requested By: Rod Lyons Order Number: [id number] MD: Adarsh Dumont Measurements Intervals [place] Rate: 90 P: 71 [place]: 166 QRS: 63 QRSD: 101 T: -13 QT: 415 QTc: 508 Interpretive Statements Sinus rhythm poor r wave progression Borderline T abnormalities, inferior leads Borderline prolonged QT interval Compared to ECG 12/16/2019 17:28:34 T-wave abnormality now present Electronically Signed On 06-17-2020 14:52:03 SAMPLER PICKUP by Adarsh Dumont [email or web address] <ELECTRONICALLY SIGNED> By: Adarsh Dumont MD, FAC 06/17/20 1452 0944 0944 Adarsh Dumont MD, [facility] /EPI
== END 2020-06-17 12:14 | disposition home or self-care (01) ==
LOC: M.ERS 09:38
PROVIDERS: Family Medicine
DX: R07.89 Other chest pain (principal); E11.9 Type 2 diabetes mellitus without complications; E78.5 Hyperlipidemia, unspecified; I10 Essential (primary) hypertension; F17.210 Nicotine dependence, cigarettes, uncomplicated; Z88.2 Allergy status to sulfonamides; Z95.5 Presence of coronary angioplasty implant and graft; Z98.890 Other specified postprocedural states

== ENCOUNTER 2020-12-15 05:41 | Emergency (ER) | payer OTHER, MEDICAID ==
[~2020-12-15] VITALS: Ht 299.7 cm; Wt 87.1 kg
[~2020-12-15 05:41] MED LIST changes: +LIPITOR40 MG PO; +NITROSTAT0.4 M1 SUBLING; +TOPROL XL25 MG PO
[2020-12-15] MEDS ORDERED: TRAMADOL 50 MG50 MG PO (06:10)
[2020-12-15] MEDS ORDERED: ZOFRAN ODT4 MG PO (06:10)
[2020-12-15] MEDS ORDERED: MUPIROCIN15 GM TOP (06:13)
[2020-12-15 06:42] VITALS: BP 171/71
== END 2020-12-15 06:42 | disposition home or self-care (01) ==
LOC: M.ERS 05:41
DX: K42.9 Umbilical hernia without obstruction or gangrene (principal); Z79.899 Other long term (current) drug therapy; E11.9 Type 2 diabetes mellitus without complications; I10 Essential (primary) hypertension; Z98.890 Other specified postprocedural states; Z95.1 Presence of aortocoronary bypass graft

== ENCOUNTER 2021-03-14 08:27 | Emergency (ER) | payer OTHER, MEDICAID ==
[~2021-03-14] VITALS: Ht 165.1 cm; Wt 86.2 kg
[~2021-03-14 08:27] MED LIST changes: +MUPIROCIN15 GM TOP; +ZOFRAN ODT4 MG PO
[2021-03-14] MEDS ORDERED: FLEXERIL PO (08:51)
[2021-03-14] MEDS ORDERED: HYDROCODON-ACE1 EAC7 PO (08:51)
[2021-03-14 09:03] VITALS: BP 158/63
== END 2021-03-14 09:04 | disposition home or self-care (01) ==
LOC: M.ERS 08:27
DX: M54.5 Low back pain (principal); R22.2 Localized swelling, mass and lump, trunk; E11.9 Type 2 diabetes mellitus without complications; I10 Essential (primary) hypertension; E78.5 Hyperlipidemia, unspecified; I25.2 Old myocardial infarction; F17.210 Nicotine dependence, cigarettes, uncomplicated; Z95.5 Presence of coronary angioplasty implant and graft; Z98.890 Other specified postprocedural states; Z79.899 Other long term (current) drug therapy; Z79.82 Long term (current) use of aspirin; Z79.2 Long term (current) use of antibiotics; Z88.2 Allergy status to sulfonamides

== ENCOUNTER 2021-08-28 08:27 | Emergency (ER) | payer OTHER, MEDICAID ==
[~2021-08-28] VITALS: Ht 165.1 cm; Wt 86.2 kg
[~2021-08-28 08:27] MED LIST changes: +HYDROCODON-ACE1 EAC7 PO
[2021-08-28 09:06] LABS: ABSOLUTE BASOPHILS 0.1 thou/uL (0.0-0.2); ABSOLUTE EOSINOPHILS 0.2 thou/uL (0.0-0.7); ABSOLUTE LYMPHOCYTES 2.1 thou/uL (0.8-5.3); ABSOLUTE MONOCYTES 0.8 thou/uL (0.0-1.2); ABSOLUTE NEUTROPHILS 8.2 thou/uL (1.6-8.1); BASOPHILS 0.5 %; HEMATOCRIT 44.4 % (37.0-47.0); HEMOGLOBIN 14.5 gm/dL (12.0-15.0); LYMPHOCYTES 18.5 %; MCHC 32.5 g/dL (28.0-37.0); MCV 89.2 fL (80.0-100.0); MPV 8.8 fl. (7.2-11.1); NUCLEATED RBCS 0 /100WBC; PLATELET COUNT* 251 thou/uL (150-400); RBC 4.98 mil/uL (4.20-5.00); RDW-CV 14.2 % (10.5-14.5); WBC 11.4 thou/uL (4.0-11.0)
[2021-08-28 09:16] LABS: CALCIUM 8.9 mg/dL (8.5-10.1); CREATININE 0.7 mg/dL (0.6-1.3); POTASSIUM 4.3 mmol/L (3.5-5.1)
[2021-08-28 09:27] LABS: ALBUMIN 3.2 g/dL (3.4-5.0); MAGNESIUM 1.6 mg/dL (1.8-2.4); TOTAL BILIRUBIN 0.3 mg/dL (<0.1-1.0); TOTAL PROTEIN 7.1 g/dL (6.4-8.2)
[2021-08-28 11:57] VITALS: BP 143/66
--- NOTE | 2021-08-29 14:43 | EKG ---
[place] [address] ELECTROCARDIOGRAM REPORT Name: FABRIZIO POON Room: [facility]#: [id number] Admission: 08/28/21 Attend Phys: Discharge: 08/28/21 Date of : [birth year] Date of Service: 08/28/2132 Report #: [id number] THIS REPORT FOR: //name// [facility] ED Test Date: 2021-08-28 Test Time: 08:32:32 Pat Name: FABRIZIO POON Department: Room: Gender: F Sat Math Tutor: : 1975 Requested By: Rod Lyons Order Number: [id number] MD: Adarsh Dumont Measurements Intervals [place] Rate: 71 P: 88 [place]: 201 QRS: 63 QRSD: 94 T: 12 QT: 417 QTc: 454 Interpretive Statements Sinus rhythm Compared to ECG 06/17/2020 09:44:50 Poor R-wave progression no longer present Electronically Signed On 08-29-2021 14:43:11 SENIOR ENGINEERING SPECIALIST by Adarsh Dumont [email or web address] <ELECTRONICALLY SIGNED> By: Adarsh Dumont MD, [facility] 08/29/21 1443 0832 0832 Adarsh Dumont MD, [facility] /EPI
== END 2021-08-28 11:58 | disposition home or self-care (01) ==
LOC: M.ERS 08:27
PROVIDERS: Family Medicine
DX: R07.89 Other chest pain (principal); E11.9 Type 2 diabetes mellitus without complications; I10 Essential (primary) hypertension; E78.5 Hyperlipidemia, unspecified; F17.210 Nicotine dependence, cigarettes, uncomplicated; Z88.2 Allergy status to sulfonamides; Z90.49 Acquired absence of other specified parts of digestive tract; Z79.899 Other long term (current) drug therapy